=== PATIENT | male | born 1950 | race Caucasian/White ===

== ENCOUNTER 2021-03-12 14:57 | Observation (INO) ==
[2021-03-12 15:57] LABS: Basophils # 0.1 K/mcL (0.0-0.2); Basophils % 1.2 %; Eosinophils # 0.8 K/mcL (0.0-0.6); Eosinophils % 7.3 %; Hematocrit 45.9 % (37.5-50.1); Hemoglobin 15.2 g/dL (12.9-16.9); Immature Granulocytes % 0.5 % (0-4); Lymphocytes # 3.5 K/mcL (0.6-4.6); Lymphocytes % 31.4 %; Mean Corpuscular HGB Conc 33.1 g/dL (31.6-35.5); Mean Corpuscular Volume 87.6 fL (83.0-100.0); Mean Platelet Volume 9.4 fL (9.4-12.4); Monocytes # 0.8 K/mcL (0.0-1.3); Monocytes % 6.8 %; Neutrophils # 5.9 K/mcL (1.6-8.9); Platelet Count 235 K/mcL (140-400); Red Blood Count 5.24 M/mcL (4.19-5.50); Red Cell Distribution Width 12.7 % (11.5-14.5); Segmented Neutrophils % 52.8 %; White Blood Count 11.2 K/mcL (4.3-11.1)
[2021-03-12 16:06] LABS: Prothrombin Time 11.8 Seconds (9.4-12.1)
[2021-03-12 16:08] LABS: Activated Partial Thrombo Time 25.4 Seconds (26.0-36.0)
[2021-03-12 16:18] LABS: BUN/Creatinine Ratio 20 (6-26); Blood Urea Nitrogen 17 mg/dL (8-23); Calcium 9.5 mg/dL (8.6-10.3); Carbon Dioxide 25 mEq/L (23-29); Chloride 103 mEq/L (98-107); Glucose 231 mg/dL (70-105); Osmolality,Calculated 299 (280-300); Potassium 3.4 mEq/L (3.5-5.1); Sodium 140 mEq/L (136-145); Troponin I < 0.03 ng/mL (< 0.04); eGFR For African Americans > 60 (> 60); eGFR For Non-African Americans > 60 (> 60)
[2021-03-12] MEDS ORDERED: Aspirin 81 MG TAB.CHEW PO ONE (16:39)
[2021-03-12] MEDS ORDERED: Naloxone 0.4 MG/ML INJ IVP PRN (17:28)
[2021-03-12] MEDS ORDERED: Melatonin 3 MG TABLET PO PRN (17:28)
[2021-03-12] MEDS ORDERED: Mag Hydrox/Al Hydrox/Simeth 30 ML UDC PO PRN (17:28)
[2021-03-12] MEDS ORDERED: Ondansetron ODT 4 MG TAB.RAPDIS SL PRN (17:28)
[2021-03-12] MEDS ORDERED: MOM Conc 10 ML UD.LIQ PO PRN (17:28)
[2021-03-12] MEDS ORDERED: Perflutren Lipid Microsphere 1.3 ML in 0.9 % Sodium Chloride 8.7 ML IVP PRN (17:30)
[2021-03-12] MEDS ORDERED: Dextrose Gel 15 GM/37.5 ML TUBE PO PRN ×2 (17:32)
[2021-03-12] MEDS ORDERED: *HR* Dextrose 50 % in Water (Vial) 50 ML VIAL IVP PRN (17:32)
[2021-03-12] MEDS ORDERED: D5% in Water 1,000 ML IVC PRN (17:32)
[2021-03-12 18:17] LABS: Estimated Average Glucose 212 mg/dl
[2021-03-12] MEDS ORDERED: Insulin LISPRO 300 UNITS/3 ML VIAL SUBQ SCH (21:00)
[2021-03-12] MEDS ORDERED: clonazePAM 1 MG TABLET PO PRN (22:50)
[2021-03-13 03:18] LABS: Hemoglobin 14.3 g/dL (12.9-16.9); Mean Corpuscular Hemoglobin 29.7 pg (28.0-33.3); Mean Corpuscular Volume 87.3 fL (83.0-100.0); Mean Platelet Volume 8.9 fL (9.4-12.4); Platelet Count 187 K/mcL (140-400); Red Blood Count 4.81 M/mcL (4.19-5.50); Red Cell Distribution Width 12.7 % (11.5-14.5)
[2021-03-13 03:38] LABS: Alanine Aminotransferase 18 Units/L (7-52); Albumin 3.8 g/dL (3.5-5.7); Albumin/Globulin Ratio 1.8 (1.1-2.2); Alkaline Phosphatase 98 Units/L (34-104); Aspartate Amino Transferase 18 Units/L (13-39); BUN/Creatinine Ratio 24 (6-26); Bilirubin,Total 0.7 mg/dL (0.3-1.0); Blood Urea Nitrogen 17 mg/dL (8-23); Calcium 9.1 mg/dL (8.6-10.3); Carbon Dioxide 28 mEq/L (23-29); Chloride 104 mEq/L (98-107); Chol/HDL Ratio 4.9 (0-4.9); Cholesterol 168 mg/dL (< 200); Globulin 2.1 g/dL (2.4-3.5); Glucose 237 mg/dL (70-105); HDL Cholesterol 34 mg/dL (40-59); LDL Cholesterol,Calculated 91 mg/dL (< 100); Osmolality,Calculated 297 (280-300); Potassium 3.5 mEq/L (3.5-5.1); Sodium 139 mEq/L (136-145); Total Protein 5.9 g/dL (6.4-8.9); Triglycerides 217 mg/dL (< 150); eGFR For African Americans > 60 (> 60); eGFR For Non-African Americans > 60 (> 60)
[2021-03-13 04:11] LABS: Estimated Average Glucose 200 mg/dl; Hemoglobin A1C 8.6 %
[2021-03-13] MEDS ORDERED: Regadenoson 0.4 MG/5 ML SYRINGE IVP ONE (06:11)
[2021-03-13] MEDS: Insulin LISPRO 300 UNITS/3 ML VIAL SUBQ SCH ×2 (08:04→11:57)
[2021-03-13] MEDS ORDERED: Aspirin 81 MG TAB.CHEW PO SCH (09:00)
[2021-03-13 12:16] VITALS: BP 143/76
== END 2021-03-13 15:51 | disposition home or self-care (01) ==
LOC: EMEROOARM 14:57 → 3BNU 14:57 → SUATTDRO 16:48 → 3BNU 17:24
PROVIDERS: ADMIT Internal Medicine; ATTEND Registered Nurse